=== PATIENT | female | born 1940 | race Caucasian/White ===

== ENCOUNTER 2016-05-26 15:58 | Emergency (ER) | payer OTHER, MEDICARE ==
[~2016-05-26] VITALS: Ht 172.7 cm; Wt 99.2 kg
[~2016-05-26 15:58] MED LIST: ALEN70TA4 PO; AMLO10TA2 PO; ASPCH81X PO; BENA40TA6 PO; LBT/200 PO; PARI1CAP5 PO; TACR1CAP5 PO
[2016-05-26 16:21] VITALS: Ht 172.7 cm; Wt 99.2 kg
[2016-05-26] MEDS ORDERED: SODIUM CHLORIDE 0.9% 1000ML 1,000 ML IV STA (16:32)
[2016-05-26 16:51] LABS: BASO % 0.1 %; BASO ABS # 0.02 K/uL (0-0.2); COMPLETE YES; EOS % 0.2 %; HEMATOCRIT 38.6 % (37-47); IG% 0.4 %; LYMPH % 6.1 %; LYMPH ABS # 0.86 K/uL (1.2-3.4); MEAN CELL VOLUME 90.8 fL (80-100); MEAN CORPUSCULAR HEMOGLOBIN 31.8 pg (25-34); MEAN PLATELET VOLUME 10.8 fL (7.4-10.4); MONO % 12.8 %; NEUT % 80.4 %; PLATELET COUNT 153 K/uL (130-400); RED BLOOD COUNT 4.25 M/uL (4.2-5.4); WHITE BLOOD COUNT 14.07 K/uL (4.8-10.8)
[2016-05-26] MEDS ORDERED: ASPI81TA28 PO (16:55)
[2016-05-26] MEDS ORDERED: LBT/100 PO ×2 (16:55)
[2016-05-26] MEDS ORDERED: CHOL400T PO (16:55)
--- NOTE | 2016-05-26 16:57 | DIAGNOSTIC IMAGING REPORT ---
CHEST ONE VIEW PORTABLE CLINICAL HISTORY: Evaluate Fever/Sepsis COMPARISON STUDY: No previous studies for comparison. FINDINGS: Mild cardiomegaly. Diaphragms smooth. The lungs are clear. Our no focal infiltrates. IMPRESSION: Mild cardiomegaly. Otherwise negative study Electronically signed by: Joss Tapia M.D. 05/26/2016 4:55 PM Dictated Date/Time: 05/26/2016 4:55 PM
[2016-05-26 17:00] LABS: INR 1.1 (0.9-1.1); PARTIAL THROMBOPLASTIN RATIO 1.2; PROTHROMBIN TIME (PATIENT) 11.7 SECONDS (9.0-12.0)
[2016-05-26 17:14] LABS: ALT/SGPT 37 U/L (12-78); BLOOD UREA NITROGEN 13 mg/dl (7-18); BUN/CREATININE RATIO 13.1 (10-20); CALCIUM 9.2 mg/dl (8.5-10.1); CARBON DIOXIDE 21 mmol/L (21-32); CHLORIDE 102 mmol/L (98-107); GLUCOSE 124 mg/dl (70-99); POTASSIUM 4.1 mmol/L (3.5-5.1); SODIUM 136 mmol/L (136-145)
[2016-05-26 17:19] LABS: ALKALINE PHOSPHATASE 67 U/L (45-117); AST/SGOT 34 U/L (15-37)
[2016-05-26 17:34] LABS: MANUAL MICROSCOPIC REQUIRED? YES; URINE APPEARANCE CLEAR (CLEAR); URINE BILIRUBIN NEG (NEG); URINE COLOR YELLOW; URINE NITRITE NEG (NEG); URINE PH 6.5 (4.5-7.5); URINE SPECIFIC GRAVITY 1.015 (1.000-1.030); UROBILINOGEN POS (NEG)
[2016-05-26 17:47] LABS: REVIEW REQ? NO
[2016-05-26 17:55] LABS: URINE BACTERIA 3+ (NEG); URINE WBC >30 /hpf (0-5)
[2016-05-26 18:24] LABS: ZZUR CULT IF INDIC CLEAN CATCH YES
[2016-05-26] MEDS ORDERED: CEFTRIAXONE SOD INJ 1 GM ADDVIAL IV STA (18:33)
[2016-05-26] MEDS ORDERED: AMOX500C3 PO (18:35)
--- NOTE | 2016-05-26 18:35 | EMERGENCY ROOM VISIT NOTE ---
History Report prepared by Kristen: Charis Pleitez Under the Supervision of: Dr. Rashi Jon D.O. First contact with patient: 16:26 Chief Complaint: FEVER Stated Complaint: LIGHT HEADED,FEVER,UTI History of Present Illness The patient is a 75 year old female who presents to the Emergency Room with complaints of worsening illness symptoms beginning 3 days prior to arrival. The patient states that she was at [facility] and was told she has a urinary tract infection. She was referred to the ED due to having a history of kidney transplant. The patient has been experiencing a fever, chills, dizziness and lightheadedness. The patient is also experiencing urinary frequency and urgency. She denies nausea, vomiting, cough, or congestion. 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 Review of Systems See HPI for pertinent positives & negatives. A total of 10 systems reviewed and were otherwise negative. Past Medical & Surgical Medical Problems: (1) Hypertension Nos Surgical Problems: (1) Kidney transplanted Family History Patient reports no known family medical history. Social History Smoking Status: Never Smoker Marital Status: Housing Status: lives with significant other Occupation Status: retired Current/Historical Medications Scheduled Alendronate Sodium (Fosamax), 70 MG PO WK Amlodipine Besylate (Norvasc), 10 MG PO DAILY Amoxicillin (Amoxil), 500 MG PO TID Aspirin (Aspirin Ec), 81 MG PO DAILY Benazepril Hcl (Lotensin), 40 MG PO DAILY Cholecalciferol (Vitamin D), 400 UNITS PO DAILY Labetalol Hcl (Normodyne), 200 MG PO QAM Labetalol Hcl (Normodyne), 100 MG PO QPM Paricalcitol (Paricalcitol), 2 MCG PO MWF Paricalcitol (Paricalcitol), 1 MCG PO 4XWK Tacrolimus (Prograf), 2 MG PO QAM Tacrolimus (Prograf), 1 MG PO QAM Allergies Coded Allergies: No Known Allergies (Verified , 05/26/16) Physical Exam Vital Signs Date Time Temp Pulse Resp B/P Pulse Ox O2 Delivery O2 Flow Rate FiO2 05/26/16 18:16 38.8 103 20 136/93 92 Room Air 05/26/16 17:10 98 05/26/16 16:21 38.1 102 20 140/82 93 Room Air Physical Exam CONSTITUTIONAL/VITAL SIGNS: Reviewed / noted above. GENERAL: Non-toxic in appearance. INTEGUMENTARY: Warm, dry, and [place]. HEAD: Normocephalic. EYES: without scleral icterus or trauma. ENT/OROPHARYNX: clear and moist. LYMPHADENOPATHY/NECK: Is supple without lymphadenopathy or meningismus. RESPIRATORY: Lungs clear and equal. CARDIOVASCULAR: Regular rate and rhythm. GI/ABDOMEN: Soft and nontender. No organomegaly or pulsatile mass. No rebound or guarding. Normal bowel sounds. EXTREMITIES: Warm and well perfused. BACK: No CVA tenderness. NEUROLOGICAL: Intact without focal deficits. PSYCHIATRIC: normal affect. MUSCULOSKELETAL: Normally developed with good muscle tone. Medical Decision & Procedures ER Provider Diagnostic Interpretation: X ray results and stated below per my interpretation and radiology interpretation. CHEST ONE VIEW PORTABLE CLINICAL HISTORY: Evaluate Fever/Sepsis COMPARISON STUDY: No previous studies for comparison. FINDINGS: Mild cardiomegaly. Diaphragms smooth. The lungs are clear. Our no focal infiltrates. IMPRESSION: Mild cardiomegaly. Otherwise negative study Electronically signed by: Joss Tapia M.D. 05/26/2016 4:55 PM Dictated Date/Time: 05/26/2016 4:55 PM Laboratory Results 05/26/16 16:41 Red Blood Count 4.25, Mean Corpuscular Volume 90.8, Mean Corpuscular Hemoglobin 31.8, Mean Corpuscular Hemoglobin Concent 35.0, Mean Platelet Volume 10.8, Neutrophils (%) (Auto) 80.4, Lymphocytes (%) (Auto) 6.1, Monocytes (%) (Auto) 12.8, Eosinophils (%) (Auto) 0.2, Basophils (%) (Auto) 0.1, Neutrophils # (Auto ) 11.31, Lymphocytes # (Auto) 0.86, Monocytes # (Auto) 1.80, Eosinophils # (Auto ) 0.03, Basophils # (Auto) 0.02 05/26/16 16:41 Test 05/26/16 16:41 05/26/16 17:10 White Blood Count 14.07 K/uL (4.8-10.8) Red Blood Count 4.25 M/uL (4.2-5.4) Hemoglobin 13.5 g/dL (12.0-16.0) Hematocrit 38.6 % (37-47) Mean Corpuscular Volume 90.8 fL (80-100) Mean Corpuscular Hemoglobin 31.8 pg (25-34) Mean Corpuscular Hemoglobin Concent 35.0 g/dl (32-36) Platelet Count 153 K/uL (130-400) Mean Platelet Volume 10.8 fL (7.4-10.4) Neutrophils (%) (Auto) 80.4 % Lymphocytes (%) (Auto) 6.1 % Monocytes (%) (Auto) 12.8 % Eosinophils (%) (Auto) 0.2 % Basophils (%) (Auto) 0.1 % Neutrophils # (Auto) 11.31 K/uL (1.4-6.5) Lymphocytes # (Auto) 0.86 K/uL (1.2-3.4) Monocytes # (Auto) 1.80 K/uL (0.11-0.59) Eosinophils # (Auto) 0.03 K/uL (0-0.5) Basophils # (Auto) 0.02 K/uL (0-0.2) RDW Standard Deviation 50.3 fL (36.4-46.3) RDW Coefficient of Variation 15.1 % (11.5-14.5) Immature Granulocyte % (Auto) 0.4 % Immature Granulocyte # (Auto) 0.05 K/uL (0.00-0.02) Prothrombin Time 11.7 SECONDS (9.0-12.0) Prothromb Time International Ratio 1.1 (0.9-1.1) Activated Partial Thromboplast Time 31.5 SECONDS (21.0-31.0) Partial Thromboplastin Ratio 1.2 Anion Gap 13.0 mmol/L (3-11) Est Creatinine Clear Calc Drug Dose 61.7 ml/min Estimated GFR () 64.7 Estimated GFR (Non- 55.8 BUN/Creatinine Ratio 13.1 (10-20) Calcium Level 9.2 mg/dl (8.5-10.1) Total Bilirubin 1.1 mg/dl (0.2-1) Direct Bilirubin 0.3 mg/dl (0-0.2) Aspartate Amino Transf (AST/SGOT) 34 U/L (15-37) Alanine Aminotransferase (ALT/SGPT) 37 U/L (12-78) Alkaline Phosphatase 67 U/L (45-117) Total Creatine Kinase 21 U/L (26-192) Creatine Kinase MB < 0.5 ng/ml (0.5-3.6) Creatine Kinase MB Ratio (0-3.0) Total Protein 7.0 gm/dl (6.4-8.2) Albumin 3.4 gm/dl (3.4-5.0) Lipase 76 U/L (73-393) Urine Color YELLOW Urine Appearance CLEAR (CLEAR) Urine pH 6.5 (4.5-7.5) Urine Specific [place] 1.015 (1.000-1.030) Urine Protein 2+ (NEG) Urine Glucose (UA) NEG (NEG) Urine Ketones NEG (NEG) Urine Occult Blood 1+ (NEG) Urine Nitrite NEG (NEG) Urine Bilirubin NEG (NEG) Urine Urobilinogen POS (NEG) Urine Leukocyte Esterase TRACE (NEG) Urine RBC 5-10 /hpf (0-4) Urine WBC >30 /hpf (0-5) Urine Epithelial Cells >30 /lpf (0-5) Urine Bacteria 3+ (NEG) Laboratory results as stated above per my review. Medications Administered Medications (Trade) Dose Ordered Sig/Miguel A Route Start Time Stop Time Status Last Admin Dose Admin Sodium Chloride (Nss 1000ml) 1,000 ml @ 999 mls/hr Q1H1M STAT IV 05/26/16 16:32 05/26/16 17:32 DC 05/26/16 17:26 999 MLS/HR ED Course 1629: Previous medical records were reviewed. The patient was evaluated in room C11. A complete history and physical examination was performed. 1632: Sodium Chloride 1,000 ml @ 999 mls/hr IV. 1833: Rocephin Inj 1 gm IV. 1845: Amoxil Cap 500 mg PO. 1847: On reevaluation, the patient is hemodynamically stable. I discussed the results and findings with the patient. She verbalized agreement of the treatment plan. She was discharged home. Medical Decision Differential includes viral illness, influenza, streptococcal pharyngitis, meningitis, pneumonia, sinusitis, UTI, pyelonephritis, otitis media. This is a 75-year-old female who presents to the ED with a chief complaint of a fever and some lightheadedness. A she states that she developed symptoms 2-3 days ago. She reports a history of kidney transplant and was seen at the urgent care. The patient was felt to have a urinary tract infection. Because of the symptoms she was sent here. The patient denies any nausea or vomiting. She denies any chest pains or shortness of breath. No upper respiratory symptoms. Temperature is 38.1. The patient's exam was unremarkable. She has no tenderness over her transplanted kidney. There is no CVA tenderness. Levels callus 14. Complete metabolic panel is normal including kidney function. Urine is suggestive of infection. Chest x-ray is negative for acute disease. The patient was treated with IV Rocephin and IV fluids. She is also started on amoxicillin by mouth. She was felt to be stable for discharge. Impression Primary Impression: UTI (urinary tract infection) Additional Impression: Fever Scribe Attestation The scribe's documentation has been prepared under my direction and personally reviewed by me in its entirety. I confirm that the note above accurately reflects all work, treatment, procedures, and medical decision making performed by me. Departure Information Dispostion Home / Self-Care Prescriptions Amoxicillin (AMOXIL) 500 Mg Cap 500 MG PO TID, #21 CAP Prov: Rashi Jon D.O. 05/26/16 Referrals Chandra Tate M.D. (PCP) Forms HOME CARE DOCUMENTATION FORM, IMPORTANT VISIT INFORMATION Patient Instructions My [facility], UTI Additional Instructions Amoxicillin as prescribed. Follow-up with your doctor for recheck. Return for worsening. Problem Qualifiers
[2016-05-26] MEDS ORDERED: AMOXICILLIN 250 MG CAP PO ONE (18:45)
[2016-05-26 20:14] VITALS: BP 143/94; PULSE 106; TEMP 38; O2SAT 93
--- NOTE | 2016-05-28 12:27 | Pharmacy Progress Note ---
ED Pharmacist Culture FollowUp Date of Service: May 28, 2016. Patient's urine cx from 05/26/16 is growing two organisms, >100,000cfu/mL E coli and 40,000 cfu/mL of alpha hemolytic strep. Patient's PMH is notable for kidney x-plant 10/2002 and she remains on immunosuppressive therapy (Tacrolimus). She was discharged on Amoxil 500mg PO TID x 7 days. The E coli is sensitive to this antibiotic. Alpha-hemolytic strep is also likely sensitive to amoxicillin. 7 days of therapy recommended by Up-to-Date authors for patient's with uncomplicated UTI occurring > 6 months s/p x-plant. Current therapy seems reasonable. No action required at this time.
== END 2016-05-26 20:16 | disposition home or self-care (01) ==
LOC: C.EDB 15:59 → C.EDC 20:16
DX: N39.0 Urinary tract infection, site not specified (principal); R50.9 Fever, unspecified; Z94.0 Kidney transplant status; I10 Essential (primary) hypertension; Z79.82 Long term (current) use of aspirin; Z79.83 Long term (current) use of bisphosphonates; Z79.899 Other long term (current) drug therapy; R42 Dizziness and giddiness

== ENCOUNTER → 2016-06-06 | Outpatient (CLI) | payer OTHER, MEDICARE ==
[~2016-06-06] MED LIST changes: +AMOX500C3 PO; -ASPCH81X PO; +ASPI81TA28 PO; +CHOL400T PO; +LBT/100 PO; -LBT/200 PO
[2016-06-06 12:18] LABS: HEMATOCRIT 39.7 % (37-47); MEAN CELL VOLUME 93.9 fL (80-100); MEAN CORPUSCULAR HEMOGLOBIN 31.2 pg (25-34); MEAN CORPUSCULAR HGB CONC 33.2 g/dl (32-36); MEAN PLATELET VOLUME 10.5 fL (7.4-10.4); PLATELET COUNT 290 K/uL (130-400); RED BLOOD COUNT 4.23 M/uL (4.2-5.4); WHITE BLOOD COUNT 6.47 K/uL (4.8-10.8)
[2016-06-06 12:34] LABS: BLOOD UREA NITROGEN 17 mg/dl (7-18); BUN/CREATININE RATIO 17.2 (10-20); CARBON DIOXIDE 24 mmol/L (21-32); CHLORIDE 105 mmol/L (98-107); CREATININE 0.99 mg/dl (0.60-1.20); GLUCOSE 100 mg/dl (70-99); MAGNESIUM 1.5 mg/dl (1.8-2.4); PHOSPHORUS 2.5 mg/dl (2.5-4.9); POTASSIUM 4.1 mmol/L (3.5-5.1); SODIUM 139 mmol/L (136-145)
[2016-06-06 12:41] LABS: URINE APPEARANCE CLEAR (CLEAR); URINE BILIRUBIN NEG (NEG); URINE COLOR YELLOW; URINE NITRITE NEG (NEG); URINE SPECIFIC GRAVITY 1.013 (1.000-1.030); UROBILINOGEN NEG (NEG); ZZUR CULT IF INDIC CLEAN CATCH NO
[2016-06-06 12:44] LABS: MANUAL MICROSCOPIC REQUIRED? NO; REVIEW REQ? NO
[2016-06-06 12:53] LABS: URINE PROTIEN/CREAT RATIO 0.1 (0-0.2); URINE TOTAL PROTEIN 15.7 mg/dl (0-11.9)
[2016-06-08 01:15] LABS: FK506 TACROLIMUS HIGHLY SENS 6.3 MCG/L (5-20)
== END | disposition home or self-care (01) ==
LOC: C.LABBFT 10:30
PROVIDERS: ATTEND Internal Medicine Nephrology
DX: Z94.0 Kidney transplant status (principal); M10.9 Gout, unspecified

== ENCOUNTER → 2016-09-11 | Outpatient (CLI) | payer OTHER, MEDICARE ==
[~2016-09-11] MED LIST changes: -AMOX500C3 PO
[2016-09-11 17:34] LABS: HEMATOCRIT 41.4 % (37-47); MEAN CELL VOLUME 96.1 fL (80-100); MEAN CORPUSCULAR HEMOGLOBIN 31.8 pg (25-34); MEAN CORPUSCULAR HGB CONC 33.1 g/dl (32-36); MEAN PLATELET VOLUME 11.5 fL (7.4-10.4); PLATELET COUNT 219 K/uL (130-400); RED BLOOD COUNT 4.31 M/uL (4.2-5.4); WHITE BLOOD COUNT 6.64 K/uL (4.8-10.8)
[2016-09-11 17:42] LABS: URINE APPEARANCE CLEAR (CLEAR); URINE BILIRUBIN NEG (NEG); URINE COLOR YELLOW; URINE EPITHELIAL CELL AUTO >30 /lpf (0-5); URINE NITRITE NEG (NEG); URINE SPECIFIC GRAVITY 1.019 (1.000-1.030); UROBILINOGEN NEG (NEG)
[2016-09-11 17:45] LABS: MANUAL MICROSCOPIC REQUIRED? NO; REVIEW REQ? NO
[2016-09-11 17:46] LABS: BLOOD UREA NITROGEN 17 mg/dl (7-18); BUN/CREATININE RATIO 18.4 (10-20); CALCIUM 9.4 mg/dl (8.5-10.1); CARBON DIOXIDE 26 mmol/L (21-32); CHLORIDE 107 mmol/L (98-107); GLUCOSE 88 mg/dl (70-99); POTASSIUM 4.1 mmol/L (3.5-5.1); SODIUM 140 mmol/L (136-145)
[2016-09-11 17:47] LABS: PHOSPHORUS 2.9 mg/dl (2.5-4.9)
[2016-09-11 18:06] LABS: URINE PROTIEN/CREAT RATIO 0.2 (0-0.2); URINE TOTAL PROTEIN 27.1 mg/dl (0-11.9)
[2016-09-14 14:44] LABS: FK506 TACROLIMUS HIGHLY SENS 10.3 MCG/L (5-20)
== END | disposition home or self-care (01) ==
LOC: C.LABBFT 11:29
PROVIDERS: ATTEND Internal Medicine Nephrology
DX: Z48.22 Encounter for aftercare following kidney transplant (principal); N25.81 Secondary hyperparathyroidism of renal origin; Z92.25 Personal history of immunosuppression therapy

== ENCOUNTER → 2016-10-17 | Outpatient (CLI) | payer OTHER, MEDICARE ==
[2016-10-17 12:58] LABS: BLOOD UREA NITROGEN 18 mg/dl (7-18); MAGNESIUM 1.6 mg/dl (1.8-2.4)
[2016-10-19 08:09] LABS: FK506 TACROLIMUS HIGHLY SENS 7.1 MCG/L (5-20)
== END | disposition home or self-care (01) ==
LOC: C.LABBFT 08:10
PROVIDERS: ATTEND Internal Medicine Nephrology
DX: Z48.22 Encounter for aftercare following kidney transplant (principal)

== ENCOUNTER → 2017-01-01 | Outpatient (CLI) | payer OTHER, MEDICARE ==
[2017-01-01 12:13] LABS: HEMATOCRIT 39.2 % (37-47); MEAN CORPUSCULAR HEMOGLOBIN 32.9 pg (25-34); MEAN CORPUSCULAR HGB CONC 34.9 g/dl (32-36); MEAN PLATELET VOLUME 11.6 fL (7.4-10.4); PLATELET COUNT 180 K/uL (130-400); RED BLOOD COUNT 4.17 M/uL (4.2-5.4)
[2017-01-01 12:34] LABS: BLOOD UREA NITROGEN 14 mg/dl (7-18); BUN/CREATININE RATIO 15.2 (10-20); CALCIUM 9.3 mg/dl (8.5-10.1); CARBON DIOXIDE 25 mmol/L (21-32); CHLORIDE 108 mmol/L (98-107); CREATININE 0.95 mg/dl (0.60-1.20); GLUCOSE 99 mg/dl (70-99); MAGNESIUM 1.5 mg/dl (1.8-2.4); POTASSIUM 3.8 mmol/L (3.5-5.1); SODIUM 141 mmol/L (136-145)
[2017-01-01 12:35] LABS: PHOSPHORUS 2.3 mg/dl (2.5-4.9)
[2017-01-01 12:41] LABS: CREATININE, URINE 77.8 mg/dl; URINE PROTIEN/CREAT RATIO 0.2 (0-0.2); URINE TOTAL PROTEIN 15.1 mg/dl (0-11.9)
== END | disposition home or self-care (01) ==
LOC: C.LABBFT 08:53
PROVIDERS: ATTEND Internal Medicine Nephrology
DX: E55.9 Vitamin D deficiency, unspecified (principal); N25.81 Secondary hyperparathyroidism of renal origin; Z48.22 Encounter for aftercare following kidney transplant

== ENCOUNTER → 2017-05-16 | Outpatient (CLI) | payer OTHER, MEDICARE ==
[2017-05-16 12:23] LABS: HEMATOCRIT 42.7 % (37-47); HEMOGLOBIN 14.5 g/dL (12.0-16.0); MEAN CORPUSCULAR HEMOGLOBIN 31.6 pg (25-34); MEAN PLATELET VOLUME 12.2 fL (7.4-10.4); PLATELET COUNT 177 K/uL (130-400); RED CELL DISTRIBUTION WIDTH CV 14.3 % (11.5-14.5); RED CELL DISTRIBUTION WIDTH SD 48.7 fL (36.4-46.3); WHITE BLOOD COUNT 12.36 K/uL (4.8-10.8)
[2017-05-16 12:30] LABS: ALBUMIN 3.8 gm/dl (3.4-5.0); ALT/SGPT 24 U/L (12-78); AST/SGOT 16 U/L (15-37); BLOOD UREA NITROGEN 19 mg/dl (7-18); CALCIUM 9.9 mg/dl (8.5-10.1); CARBON DIOXIDE 25 mmol/L (21-32); CREATININE 0.96 mg/dl (0.60-1.20); GLUCOSE 117 mg/dl (70-99); POTASSIUM 3.6 mmol/L (3.5-5.1); SODIUM 139 mmol/L (136-145); URIC ACID 6.7 mg/dl (2.6-7.2)
[2017-05-16 12:32] LABS: ALKALINE PHOSPHATASE 188 U/L (45-117); PHOSPHORUS 2.7 mg/dl (2.5-4.9); TOTAL PROTEIN 7.6 gm/dl (6.4-8.2)
[2017-05-20 07:43] LABS: FK506 TACROLIMUS HIGHLY SENS 6.2 MCG/L (5-20)
== END | disposition home or self-care (01) ==
LOC: C.LABBFT 08:17
PROVIDERS: ATTEND Internal Medicine Nephrology
DX: Q61.2 Polycystic kidney, adult type (principal)

== ENCOUNTER 2021-12-24 09:55 | Observation (INO) ==
--- NOTE | 2021-11-15 13:52 | PAT Medication Instructions ---
Medication Instructions Date of Service November 15, 2021 Home Medications allopurinol 100 mg tablet (Zyloprim) 200 mg PO QAM amlodipine 10 mg tablet (Norvasc) 10 mg PO QAM benazepril 40 mg tablet (Lotensin) 40 mg PO QAM labetalol 200 mg tablet 200 mg PO BID tacrolimus 0.5 mg capsule, immediate-release (Prograf) 1 mg PO BID cholecalciferol (vitamin D3) 25 mcg (1,000 unit) capsule 75 mcg PO QAM rivaroxaban 20 mg tablet (Xarelto) 20 mg PO QPM ASK your prescriber and surgeon rivaroxaban 20 mg tablet (Xarelto) 20 mg PO QPM (in order for spinal or epidural anesthesia, Xarelto needs to be stopped 72 hours/3 days before surgery. Please check if okay with doctor that prescribes this to you) tacrolimus 0.5 mg capsule, immediate-release (Prograf) 1 mg PO BID DO NOT take the morning of surgery cholecalciferol (vitamin D3) 25 mcg (1,000 unit) capsule 75 mcg PO QAM Take morning of surgery With a small sip of water, OTHERWISE NOTHING TO EAT OR DRINK AFTER MIDNIGHT: allopurinol 100 mg tablet (Zyloprim) 200 mg PO QAM amlodipine 10 mg tablet (Norvasc) 10 mg PO QAM benazepril 40 mg tablet (Lotensin) 40 mg PO QAM labetalol 200 mg tablet 200 mg PO BID Take evening before surgery labetalol 200 mg tablet 200 mg PO BID Other Notes If you have any questions please call us at [phone] or [phone] or [phone] or [phone]
--- NOTE | 2021-11-23 13:02 | Anesthesiology Consultation ---
Date of Service November 23, 2021 Assessment & Plan (1) Encounter for pre-operative examination: - Hx renal transplant (2002): Awaiting nephrology optimization response (Dr. Narendra Martell; [facility] kidney disease center). - COVID screening: Per assessment on 11/14: No known COVID-19 positive contacts or current COVID-19 related symptoms. Travel screen negative. Patient vaccinated. At surgeon discretion if preop Covid testing being done. - Cardiology office visit (01/07/20): "Atrial fibrillation: The likely etiology the patient's atrial fibrillation is longstanding hypertension and age. She is not appear to have obstructive sleep apnea by history. Her echocardiogram did demonstrate some evidence of LVH and atrial dilation. Fortunately, she is not symptomatic. Her heart rate appears well controlled, likely due to her antihypertensive regimen consisting of labetalol. She was started on Xarelto at the appropriate dose. Her renal function may decline over time or can be variable. If her GFR falls below 50, she may be better served by reduced dose Xarelto or switch to Eliquis ( this appeared to be more expensive for her). I do not think there is any role for cardioversion at this point. In the absence of new symptoms or worsening heart rate control, I do not believe she requires any follow-up in our clinic.. Hypertension: She appears have good control of her blood pressure. She has an element of orthostatic hypotension which currently is mild.. Left ventricular hypertrophy: Mild. Related to longstanding hypertension. On beta-sharon. Good blood pressure control currently.. Mitral regurgitation: Mild. This can be followed over time. Repeat echocardiogram for a change in symptoms or exam." Unremarkable echo done 01/04/20* - PCP office visit (10/24/21): "Right knee OA - 12/24/2021 patient is scheduled for possible TKA.. Hypertension- patient is compliant with use of amlodipine, benazepril and labetalol. No obvious side effects from these medications. Renal function as well as electrolytes are stable in August of 2021. Atrial fibrillation -diagnosed in December of 2019. she is labetalol for rate control. The patient is also on Xarelto 20 mg daily. No bleeding complications from the Xarelto. She had an echocardiogram which showed normal LV ejection fraction of 50 55% with mild concentric LVH and no regional wall motion abnormalities. Moderate left and right atrial dilation noted. Patient had labs in August of 2021 with a normal hemoglobin." - Outpatient joint assessment: Pt currently scheduled for inpatient pathway. If surgeon requests review for outpatient joint pathway, patient is not recommended acceptable candidate for outpatient joint program from anesthesia standpoint. - LUE limb restriction: LUE AVF (placed when on dialysis prior to 2002 renal transplant) Chart Review Chart Review: Patient seen in Pre Admission Testing Teaching & Discussion Pre-Anesthesia Teaching/Discussion Notes: Instructed NPO after midnight before surgery,except medications with 15 cc of water. Medication instructions provided according to the PAT guidelines. History Surgery Operation Date: 12/24/21 10:40 Proposed Procedures p Right Total Knee Arthroplasty - Maurice Traylor, Height/Weight Height: 5 ft 8 in Weight: 96.6 kg Allergies Allergy/AdvReac Type Severity Reaction Status Date / Time No Known Allergies Allergy Unknown Verified 11/14/21 15:32 Medications Home Medications Medication Instructions Recorded Confirmed Last Taken allopurinol 100 mg tablet 200 mg PO QAM 01/05/19 11/14/21 05/02/19 (Zyloprim) amlodipine 10 mg tablet (Norvasc) 10 mg PO QAM 01/05/19 11/14/21 05/02/19 benazepril 40 mg tablet (Lotensin) 40 mg PO QAM 01/05/19 11/14/21 05/02/19 labetalol 200 mg tablet 200 mg PO BID 01/05/19 11/14/21 05/02/19 tacrolimus 0.5 mg capsule, 1 mg PO BID 12/23/19 11/14/21 Unknown immediate-release (Prograf) cholecalciferol (vitamin D3) 25 75 mcg PO QAM 11/14/21 11/14/21 Unknown mcg (1,000 unit) capsule rivaroxaban 20 mg tablet (Xarelto) 20 mg PO QPM 11/14/21 11/14/21 Unknown Past Medical History Medical History (Updated 11/23/21 @ 14:19 by Bhumi Frey) Afib On Xarelto/beta sharon d/c by [facility] 2019 and advised f/u prn Gout HX Hypertension Limb alert care status LUE limb restriction Osteopenia s/p renal transplant, follows with [facility] nephrology Polycystic kidney disease s/p renal transplant (2002)- was on dialysis prior to renal transplant Follows with [facility] nephrology Exercise / Class Metabolic Activity III < 4 Walking/Shop/Light housework Past Family History Family History Mother Family history of diabetes mellitus Sister Family history of diabetes mellitus Other No pertinent family history Denies family history of Ovarian cancer Prostate cancer Myocardial infarction Breast cancer Colorectal cancer Past Surgical History Surgical History (Updated 11/23/21 @ 14:19 by Bhumi Frey) Arteriovenous fistula LUE History of ankle surgery Left Hx of tonsillectomy Kidney transplant recipient secondary to polycystic kidney disease (2002)- right Past Anesthesia History No Hx of Anesthesia Complications and No Family Hx of Anesthesia Complications History of PONV No Hx of PONV and No Hx of Motion Sickness Social History Smoking Status: Never smoker Do You Dip or Chew Tobacco: No Hx Alcohol Use: No Hx Substance Use: No substance use type: does not use Review of Systems Patient denies chest pain, shortness of breath, fever, chills, cough, wheezing, palpitations. Physical Exam Vital Signs VITALS BP 124/76 P 83 TEMP 98.1 SP02 97%RA RESP 16 PHYSICAL Decreased cervical extension range of motion ("dizziness" with full extension per pt). Full TMJ range of motion. TMD 4 finger breaths Mallampati Score 2 Dentition: intact, + caps Lungs: clear throughout to auscultation Cardiac: regular rate and rhythm, no murmurs noted Spine: normal Carotid arteries: negative bruit Extremities: no edema Lab Results Anesthesia Preop Results Results Anesthesia Widget: WBC 7.22 K/ul (4.8-10.8) 11/23/21 Hgb 12.3 g/dl (12.0-16.0) 11/23/21 Hct 37.1 % (34.1-44.9) 11/23/21 Plt 206 K/uL (130-400) 11/23/21 Na 138 mmol/L (136-145) 11/23/21 K 4.0 mmol/L (3.5-5.1) 11/23/21 Cl 104 mmol/L (98-107) 11/23/21 CO2 27 mmol/L (21-32) 11/23/21 BUN 18 mg/dl (6-23) 11/23/21 Creat 0.97 mg/dl (0.6-1.2) 11/23/21 Glucose Level 90 mg/dl (70-99(Fasting)) 11/23/21 PT 13.0 Seconds (9.0-12.0) H 11/23/21 PTT 37.3 Seconds (21.0-31.0) H 11/23/21 INR 1.2 (0.9-1.1) H 11/23/21 Blood Type O Positive 11/23/21 Antibody Screen NEGATIVE 11/23/21 Testing Electrocardiogram Date: 11/23/21 Findings: + AFIB @ (82) Chest X-Ray Date: 11/23/21 Findings: + NAD Echocardiogram Date: 01/04/20 EF 50-55%. No regional motion abnormality. Mild concentric LVH. Moderate LAD. Mild to moderate RAD. Mild MR. COVID-19 Risk Screen Screening Information COVID-19 Screen Date: 11/23/21 Exposure 21 Days Family/Household +COVID Last 21 Days: No Exposure 10 Days Any COVID Exposure Last 10 Days: No Symptoms Last 10 Days Experienced COVID Sx Last 10 Days: No + COVID 0-90 Days COVID + in Last 0-90 Days: No
--- NOTE | 2021-12-24 08:31 | History & Physical Report ---
Date of Service December 24, 2021 Assessment & Plan (1) Osteoarthritis, knee: We will proceed with a right total knee arthroplasty. Postoperatively she will be started on Xarelto for DVT prophylaxis and kept overnight in the hospital for postoperative medical management. She plans to go to outpatient physical therapy at [facility] upon discharge. History of Present Illness Chief Complaint: Osteoarthritis of the right knee. Primary Care Provider: Slo Ding PA-C Zoe is a very pleasant 80-year-old female who I have been treating for medial compartment osteoarthritis of her right knee for quite awhile now. The injections have lost their effectin this and she is only getting about a week of symptomatic reliefout of them. The pain is really starting to affect her quality of life as far as going up and down stairs, getting upfrom a seatedpositionto walking. X-rays have shown worsening osteoarthritis of the right knee. After failing conservative treatment, she has elected to proceed with a right total knee arthroplasty.. Allergies Allergy/AdvReac Type Severity Reaction Status Date / Time No Known Allergies Allergy Unknown Verified 11/14/21 15:32 Home Medications Medication Instructions Recorded Confirmed Type allopurinol 100 mg tablet 200 mg PO QAM 01/05/19 11/14/21 History (Zyloprim) amlodipine 10 mg tablet (Norvasc) 10 mg PO QAM 01/05/19 11/14/21 History benazepril 40 mg tablet (Lotensin) 40 mg PO QAM 01/05/19 11/14/21 History labetalol 200 mg tablet 200 mg PO BID 01/05/19 11/14/21 History tacrolimus 0.5 mg capsule, 1 mg PO BID 12/23/19 11/14/21 History immediate-release (Prograf) cholecalciferol (vitamin D3) 25 75 mcg PO QAM 11/14/21 11/14/21 History mcg (1,000 unit) capsule rivaroxaban 20 mg tablet (Xarelto) 20 mg PO QPM 11/14/21 11/14/21 History Past Med/Surg History Medical History Afib On Xarelto/beta sharon d/c by [facility] [place] and advised f/u prn Gout HX Hypertension Limb alert care status LUE limb restriction Osteopenia s/p renal transplant, follows with [facility] nephrology Polycystic kidney disease s/p renal transplant (2002)- was on dialysis prior to renal transplant Follows with [facility] nephrology Surgical History Arteriovenous fistula LUE History of ankle surgery Left Hx of tonsillectomy Kidney transplant recipient secondary to polycystic kidney disease (2002)- right Family History Mother Family history of diabetes mellitus Sister Family history of diabetes mellitus Other No pertinent family history Denies family history of Ovarian cancer Prostate cancer Myocardial infarction Breast cancer Colorectal cancer Social History Smoking Status: Never smoker Second Hand Exposure: No; Hx Alcohol Use: No Hx Substance Use: No Preferred Language: Romanian Communication Ability: Effective Visual Impairment: No Limitations Hearing Ability: Normal Non Acoustic Operator Required: No Beliefs That Will Affect Care: None marital status: Current Living Situation: Spouse current occupational status: retired 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 Physical Exam On physical examination the right knee, she does have a varus deformity. She is range of motion from 0 to 120 degrees. No instability. Pain over the distal medial femoral condyle.. Constitutional WD/WN, vitals as above Eyes PERRL, conjunctivae normal, anicteric sclerae ENMT external ear and nose normal, oropharynx normal Neck trachea midline, no thyromegaly Respiratory normal respiratory effort, lungs clear to auscultation Cardiovascular RRR, no murmur, no edema Gastrointestinal (Abdomen) normal bowel sounds, soft, nontender, no hepatosplenomegaly Skin no rashes, warm and dry Psychiatric A+Ox3, euthymic affect Results & Data Results & Data Laboratory Results . Diagnostic Findings X-rays of the right knee show advanced medial compartmental arthritis with joint space narrowing, osteophyte formation, and [id number] articulation. PG Care Time/CCT Total # of Minutes Spent Total Time Spent with Patient: Total time spent is greater than 50% in coordination of care (as documented) at patient's floor/unit and/or counseling patient: Coding Level of Care Code None Diagnoses Osteoarthritis, knee M17.10
[~2021-12-24 09:55] MED LIST changes: +ACETAMINOPHEN 500 MG TAB PO SCH; -ALEN70TA4 PO; -AMLO10TA2 PO; -ASPI81TA28 PO; -BENA40TA6 PO; +BUPIVACAINE 0.5 % 5 MG/1 ML PF 10ML VIAL ONE; -CHOL400T PO; +FAMOTIDINE 20 MG TAB PO SCH; +GABAPENTIN 300 MG CAP PO SCH; -LBT/100 PO; +LR 500ML BOLUS, THEN 15ML/HR IV SCH; +LR 60ML/HR IV SCH; +ORTHO JOINT MIX INFIL SCH; -PARI1CAP5 PO; +ROPIVACAINE 0.5% 5 MG/ML 30 ML VIAL ONE; -TACR1CAP5 PO; +TRANEXAMIC ACID 1,000 MG **IV Intra-op IV SCH; +TRANEXAMIC ACID 1,000 MG **IV Pre-op IV SCH; +TRANEXAMIC ACID 1,000 MG x 1 **For Topical Use TOP SCH; +ceFAZolin 2000MG 2,000 MG/15 ML SYR IV SCH; +dexAMETHasone 4 MG TAB PO SCH
[2021-12-24] MEDS ORDERED: fentaNYL citrate 100 MCG/2 ML VIAL IV PRN (11:48)
[2021-12-24] MEDS ORDERED: ATROPINE SULFATE 0.1 MG/ML 10ML SYR IV PRN (11:48)
[2021-12-24] MEDS ORDERED: ePHEDrine sulfate 50 MG/ML AMP IV PRN (11:48)
[2021-12-24] MEDS ORDERED: ONDANSETRON INJ 2 MG/ML 2 ML VIAL IV PRN ×2 (11:48→16:13)
[2021-12-24] MEDS ORDERED: MIDAZOLAM HCL 1 MG/ML 2ML VIAL ONE (12:00)
[2021-12-24] MEDS ORDERED: PROPOFOL IV EMULSION 10 MG/ML 20 ML VIAL IV ONE (12:02)
[2021-12-24] MEDS ORDERED: LIDOCAINE 2% MPF LOCAL 5 ML VIAL INFIL ONE (12:02)
[2021-12-24] MEDS ORDERED: ONDANSETRON INJ 2 MG/ML 2 ML VIAL ONE (12:02)
[2021-12-24] MEDS ORDERED: ORTHO JOINT ANESTHETIC ONE (12:52)
--- NOTE | 2021-12-24 14:18 | Operative Report ---
PG Post Operative Report Pre & Post Diagnosis Operation Date: 12/24/21 12:30 Pre-Op Diagnosis: Degenerative Joint Disease Right Knee Post-Op Diagnosis: Degenerative Joint Disease Right Knee I identified the patient and participated in the time-out.: Yes Procedure Operation Date: 12/24/21 12:30 Actual Procedures p Right Total Knee Arthroplasty, Cemented(Right) - Maurice Traylor DO Surgeon Maurice Traylor DO [employer]ologist Maurice Rogers PA-C Estimated Blood Loss 10 Findings Consistent with Post-Op Diagnosis Specimens Right femoral and tibial bone Description of Procedure Implants used: I used a [employer] Persona total knee arthroplasty system with a size 9 standard PS femur, F tibia, 34 oval patella, and a size 10 CPS polyethylene bearing. All components were cemented in place with Biomet cement. Zoe arrived [facility] for the above procedure. She was seen in the preoperative holding area and the operative extremity was identified and signed. She was given a preoperative antibiotic, TXA, a spinal anesthetic and an adductor nerve block. She was taken back to the operating room and laid on the table in supine position. She was given basic sedation. The operative knee was then prepped and draped in sterile fashion. A timeout was done, and the patient and the operative extremity was properly identified. A midline incision was made directly over the patella. Dissection was taken down to the extensor mechanism. A subvastus arthrotomy was used. The medial retinaculum was released and the fat pad was mostly excised. The knee was flexed and the ACL, PCL, and meniscus were removed. A drill was sent down the center of the femoral canal followed by an intramedullary destini. Off that destini a distal femoral cutting block was placed. 9 mm was resected off the distal femur at 5 of valgus. A posterior referencing AP sizing guide was then placed on the distal femur. The femur measured to be a size 9. 2 drill holes were placed in 3 of external rotation. A 4-in-1 cutting block was then impacted into place. Anterior, posterior, and chamfer cuts were then made. The proximal tibia was then exposed. An external tibial alignment guide was placed. A tibial cut guide was then anchored in place and the proximal tibia was then resected. The posterior aspect of the knee was then opened up and any additional meniscus fragments and osteophytes were removed. The tibia measured to be a size F. The tibial plate was then placed in the appropriate rotation and the tibia was drilled and punched. Trial components were then placed. I used a size 10 CPS polyethylene insert. The knee was brought through a full range of motion and felt to be stable. The peg holes for the femoral component were then drilled. The patella was then everted and 9 mm was resected off the posterior aspect of the patella. The patella measured to be a size 34 oval. 3 peg holes were then drilled. A trial patella was placed. The knee was once again brought through a full range of motion and felt to be stable. Trial components were then removed. The surrounding soft tissues were injected with 100 cc of an orthopedic pain control cocktail. All components were then cemented into place with Biomet cement. The final polyethylene insert was then snapped into place. Once cement was dry the tourniquet was deflated. Hemostasis was obtained. A dilute betadyne lavage was then done for 3 minutes. The joint was then irrigated with normal saline solution. The subvastus arthrotomy was then closed with #1 Vicryl suture. The skin was closed with 2-0 Vicryl, 3-0V lock suture, and renetta. A soft compressive dressing was placed. She was then transferred to a hospital bed and taken to the postanesthesia care unit in stable condition. She tolerated the procedure well. Maurice Rogers PA-C, was present for the entire procedure. He was critical for patient positioning, prepping, draping, retraction exposure, wound closure and application of sterile dressing. I attest to the content of the Intraoperative Record and any orders documented therein. Any exceptions are noted below.
--- NOTE | 2021-12-24 15:52 | XRay Report ---
XR knee RT 1 or 2V routine CLINICAL HISTORY: Surgical Post Op TECHNIQUE: 2 views of the right knee were obtained. Comparison: Comparison is made to knee radiograph FINDINGS: Patient is status post total knee arthroplasty with expected postsurgical changes including soft tiss ue swelling and subcutaneous emphysema. No periarticular lucency or hardware fracture is seen. IMPRESSION: Expected postoperative appearance status post placement of total knee arthroplasty. ACT 112: Negative or not required by law. Electronically signed by: Alex Degroot M.D. 12/24/2021 3:50 PM
[2021-12-24] MEDS ORDERED: INFLUENZA VACCINE HIGH DOSE PF 65+ 0.7 ML SYR IM ONE (15:55)
[2021-12-24] MEDS ORDERED: MAGNESIUM HYDROXIDE SUSP 30 ML UDC PO PRN (16:13)
[2021-12-24] MEDS ORDERED: METOCLOPRAMIDE HCL INJ 5 MG/ML 2 ML VIAL IV PRN (16:13)
[2021-12-24] MEDS ORDERED: oxyCODONE HCL IR 5 MG TAB (IMMEDIATE RELEASE) PO PRN (16:13)
[2021-12-24] MEDS ORDERED: HYDROmorphone INJ 0.5 MG/0.5 ML SYR IV PRN (16:13)
[2021-12-24] MEDS ORDERED: bisacodyL 10 MG SUPP PR PRN (16:13)
[2021-12-24] MEDS ORDERED: NALOXONE HCL 0.4 MG/1 ML VIAL/CARP IV PRN (16:13)
[2021-12-24] MEDS: SODIUM CHLORIDE 0.9% 1000ML 1,000 ML IV SCH (16:24)
--- NOTE | 2021-12-24 16:52 | Anesthesiology Progress Note ---
Date of Service December 24, 2021 Anesthesia Post Procedure Vital Signs Vital Signs: Temp Pulse Pulse Resp BP Pulse Ox O2 Del Method 12/24/21 16:21 36.4 C L 98 H 20 123/84 91 Room Air 12/24/21 15:48 36.6 C 85 18 119/77 92 Room Air 12/24/21 15:35 36.5 C 74 13 125/78 95 Nasal Cannula 12/24/21 15:25 75 18 127/81 95 Nasal Cannula 12/24/21 15:15 85 20 133/82 94 Nasal Cannula 12/24/21 15:05 71 18 131/78 93 Nasal Cannula 12/24/21 14:55 83 20 117/80 95 Room Air 12/24/21 14:45 70 19 107/63 97 Oxymask 12/24/21 14:38 36.1 C L 85 12 100/64 93 Oxymask 12/24/21 10:25 37.0 C 84 18 137/90 97 Room Air O2 Flow Rate 12/24/21 16:21 12/24/21 15:48 12/24/21 15:35 2 12/24/21 15:25 2 12/24/21 15:15 2 12/24/21 15:05 2 12/24/21 14:55 12/24/21 14:45 9 12/24/21 14:38 9 12/24/21 10:25 Transfer of Care Handoff Completed per policy Notes Mental Status: alert / awake / arousable Patient Amnestic to Procedure: Yes Nausea / Vomiting: adequately controlled Pain: adequately controlled Airway Patency, RR, SpO2: stable & adequate BP & HR: stable & adequate Hydration State: stable & adequate Neuraxial Anesthesia: was administered and sensory block is resolving Anesthetic Complications: no major complications apparent and Pt Satisfied with anesthetic care
[2021-12-24] MEDS: KETOROLAC TROMETHAMINE 15 MG/ML VIAL IV SCH ×2 (17:01→20:34)
[2021-12-24] MEDS: ceFAZolin 2000MG 2,000 MG/15 ML SYR IV SCH (20:32)
[2021-12-24] MEDS: TACROLIMUS 1 MG CAP PO SCH (20:33)
[2021-12-24] MEDS: DOCUSATE SODIUM 100 MG CAP PO SCH (20:33)
[2021-12-24] MEDS: LABETALOL HCL 200 MG TAB PO SCH (20:33)
[2021-12-24] MEDS: ACETAMINOPHEN 500 MG TAB PO SCH (20:34)
[2021-12-24] MEDS ORDERED: SENNA 8.6 MG TAB PO SCH (21:00)
[2021-12-25] MEDS: SODIUM CHLORIDE 0.9% 1000ML 1,000 ML IV SCH (02:40)
[2021-12-25] MEDS: KETOROLAC TROMETHAMINE 15 MG/ML VIAL IV SCH ×2 (05:18→10:52)
[2021-12-25] MEDS: ceFAZolin 2000MG 2,000 MG/15 ML SYR IV SCH (05:18)
[2021-12-25] MEDS: ACETAMINOPHEN 500 MG TAB PO SCH (05:18)
--- NOTE | 2021-12-25 07:48 | Orthopedic Progress Note ---
Date of Service December 25, 2021 Assessment & Plan (1) Status post right knee replacement: Continue with planned PT evaluation this morning. Keep dressing intact. Continue with DVT prophylaxis and pain control. Plan on discharge to home this morning. Follow up in office in 2 weeks Subjective . Zoe is POD#1 from a right total knee arthroplasty. She is resting comfortably at bedside this morning. She states that she has minimal knee pain. She has been up and ambulatory. PT evaluation is scheduled for this morning. Planning on discharge to home this AM. Review of Systems All systems reviewed & are unremarkable except as noted in HPI & below. Physical Exam . ROM from 10-80 degrees. Neurovascularly intact. Results & Data Results & Data Laboratory Results . Diagnostic Findings . PG Care Time/CCT Total # of Minutes Spent Total Time Spent with Patient: Total time spent is greater than 50% in coordination of care (as documented) at patient's floor/unit and/or counseling patient: Coding Level of Care Code 91527 Post Operative Follow-Up Diagnoses Status post right knee replacement Z96.651
[2021-12-25] MEDS ORDERED: dexAMETHasone 4 MG TAB PO SCH (08:00)
[2021-12-25] MEDS: TACROLIMUS 1 MG CAP PO SCH (08:51)
[2021-12-25] MEDS: DOCUSATE SODIUM 100 MG CAP PO SCH (08:51)
[2021-12-25] MEDS: LABETALOL HCL 200 MG TAB PO SCH (08:52)
[2021-12-25] MEDS ORDERED: MULTIVITAMIN TAB PO SCH (09:00)
[2021-12-25] MEDS ORDERED: amLODIPine BESYLATE 5 MG TAB PO SCH (09:00)
[2021-12-25] MEDS ORDERED: allopurinoL 100 MG TAB PO SCH (09:00)
[2021-12-25] MEDS ORDERED: ENALAPRIL MALEATE 10 MG TAB PO SCH (09:00)
[2021-12-25] MEDS ORDERED: RIVAROXABAN 10 MG TABLET PO SCH (09:00)
== END 2021-12-25 13:52 | disposition home or self-care (01) ==
LOC: 3E 09:55 → ASU 09:55